=== PATIENT | male | born 1935 | race Caucasian/White ===

== ENCOUNTER 2016-10-01 09:27 | Inpatient (IN) | payer OTHER ==
--- NOTE | 2016-10-01 09:54 | PDOC ---
History of Present Illness <Sonu Saldana - Last Filed: 10/01/16 15:55> - General History Source: Family, Significant Other Exam Limitations: Dementia, Language Barrier - History of Present Illness Initial Comments: 10/01/16 10:34 The patient is an 80 year old male, with significant past medical history of NSTEMI (s/p stents 2013), HTN, HLD,left inguinal hernia, Alzheimer's, who presents today complaining of 1 syncopal episode this morning. The patient speaks Kinyarwanda- history was obtained from his and son. The patient was walking back from the bathroom to his room this morning when he slumped over, lost consciousness, and fell onto the bed. The patients states that it took him 10 minutes to return back to his senses. They deny head trauma or any other injuries. The patient has no complaints at this time. The patient experienced 1 syncopal episode last week, however, he recovered quickly and the family did not bring him to the ER. The patient has been undergoing cardiac issues since a hernia was discovered 3 months ago and the doctor did not clear him for hernia repair. The patient saw Dr. Donahue who sent him to [facility] for a double bypass. He did not pass the stress test and was not cleared for surgery. He is scheduled for a triple bypass on 10/28/16. He also saw Dr. Tucker yesterday complaining of a left sided nose bleed. Denies chest pain, SOB, palpitations. Denies fever, chills, nausea, vomiting, diarrhea, constipation. Allergies: none reported PCP- Dr. Rocky Tucker Front Office Assistant - Dr. Rocky Donahue <Coni Alcaraz - Last Filed: 10/01/16 18:55> - General Chief Complaint: Syncope/Near Syncope Stated Complaint: SYNCOPE/NEAR SYNCOPE Time Seen by Provider: 10/01/16 09:53 Past History - Past Medical History Cardiac Disorders: Yes GI Disorders: Yes (hernia) - Surgical History Cardiac Surgery: Yes (stents) - Immunization History Immunization Up to Date: No - Psycho/Social/Smoking Cessation Hx Anxiety: No Suicidal Ideation: No Smoking History: Never smoked Have you smoked in the past 12 months: No Hx Alcohol Use: No Drug/Substance Use Hx: No Substance Use Type: None <Sonu Saldana - Last Filed: 10/01/16 15:55> <Coni Alcaraz - Last Filed: 10/01/16 18:55> - Past Medical History Allergies/Adverse Reactions: Allergies Allergy/AdvReac Type Severity Reaction Status Date / Time No Known Allergies Allergy Verified 10/01/16 09:46 Home Medications: Ambulatory Orders Aspirin [ASA -] 81 mg PO DAILY 10/01/16 Atorvastatin Ca [Lipitor] 40 mg PO HS 10/01/16 Donepezil HCl 5 mg PO HS 10/01/16 Folic Acid 1 mg PO DAILY 10/01/16 Memantine HCl 10 mg PO BID 10/01/16 Metoprolol Tartrate 12.5 mg PO BID 10/01/16 Ramipril 2.5 mg PO DAILY 10/01/16 Review of Systems - Review of Systems Able to Perform ROS?: Yes Comments:: 10/01/16 10:35 GENERAL/CONSTITUTIONAL: No fever or chills. No weakness. HEAD, EYES, EARS, NOSE AND THROAT: No change in vision. No ear pain or discharge. No sore throat. CARDIOVASCULAR: No chest pain or shortness of breath. RESPIRATORY: No cough, wheezing, or hemoptysis. GASTROINTESTINAL: No nausea, vomiting, diarrhea or constipation. GENITOURINARY: No dysuria, frequency, or change in urination. MUSCULOSKELETAL: No joint or muscle swelling or pain. No neck or back pain. SKIN: No rash NEUROLOGIC: +1 syncopal episode. No headache, vertigo, or change in strength/ sensation. ENDOCRINE: No increased thirst. No abnormal weight change. HEMATOLOGIC/LYMPHATIC: No anemia, easy bleeding, or history of blood clots. ALLERGIC/IMMUNOLOGIC: No hives or skin allergy. <Coni Alcaraz - Last Filed: 10/01/16 18:55> *Physical Exam - Vital Signs Last Vital Signs Temp Pulse Resp BP Pulse Ox 98.1 F 66 18 148/84 97 10/01/16 09:41 10/01/16 09:41 10/01/16 09:41 10/01/16 09:41 10/01/16 09:41 <Sonu Saldana - Last Filed: 10/01/16 15:55> - Vital Signs Last Vital Signs Temp Pulse Resp BP Pulse Ox 98.1 F 66 18 148/84 97 10/01/16 09:41 10/01/16 09:41 10/01/16 09:41 10/01/16 09:41 10/01/16 09:41 - Physical Exam Comments: 10/01/16 10:35 GENERAL: Awake, alert, and fully oriented, in no acute distress HEAD: No signs of trauma EYES: PERRLA, EOMI, sclera anicteric, conjunctiva clear ENT: Auricles normal inspection, hearing grossly normal, nares patent, oropharynx clear without exudates. Moist mucosa NECK: Normal ROM, supple, no lymphadenopathy, JVD, or masses LUNGS: Breath sounds equal, clear to auscultation bilaterally. No wheezes, and no crackles HEART: Regular rate and rhythm, normal S1 and S2, no murmurs, rubs or gallops ABDOMEN: +large left inguinal hernia that is not incarcerated. Soft, nontender, normoactive bowel sounds. No guarding, no rebound. No masses EXTREMITIES: Normal range of motion, no edema. No clubbing or cyanosis. No cords, erythema, or tenderness NEUROLOGICAL: Cranial nerves II through XII grossly intact. Normal speech, normal gait SKIN: Warm, Dry, normal turgor, no rashes or lesions noted. <Coni Alcaraz - Last Filed: 10/01/16 18:55> Heart Score/ECG Review #1 10/01/16 13:00 Normal sinus rhythm Rate at 64bpm abnormal EKG <Coni Alcaraz - Last Filed: 10/01/16 18:55> ED Treatment Course - LABORATORY CBC & Chemistry Diagram: 10/01/16 10:15 10/01/16 11:30 <Sonu Saldana - Last Filed: 10/01/16 15:55> - LABORATORY CBC & Chemistry Diagram: 10/01/16 10:15 10/01/16 11:30 - RADIOLOGY Radiograph Interpretation: 10/01/16 12:[address] without contrast As reported by Dr. Yang Cornejo Impression: Moderate atrophy and chronic microvascular ischemic changes without evidence of intracranial pathology. Chest Xray As reported by Dr. Pantera Purdy Impression: No evidence of active pulmonary disease. 10/01/16 14:[address] without contrast As reported by Dr. Yang Cornejo Impression: Increase in size of a left hepatic lobe 2 adjacent cysts versus a larger lobulated cyst with a thin septation, as described above. 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 Aneurysmal dilation of the distal abdominal aorta measuring 4.3 x 5 cm in AP and transverse dimension as well as aneurysmal dilation of the right and left common iliac artery measuring 2.1 and 1.3cm, respectively. <Coni Alcaraz - Last Filed: 10/01/16 18:55> Medical Decision Making - Medical Decision Making 10/01/16 15:59 Dr. Saldana spoke with Dr. Donahue regarding the patient's care. Dr. Saldana spoke with Dr. Tucker who requested that the patient be placed in ICU. <Coni Alcaraz - Last Filed: 10/01/16 18:55> *DC/Admit/Observation/Transfer - Discharge Dispostion Admit: Yes - Attestations Physician Attestion: 10/01/16 09:53 I, Dr. Sonu Saldana, attest that this document has been prepared under my direction and personally reviewed by me in its entirety. I further attest, that it accurately reflects all work, treatment, procedures and medical decision -making performed by me. <Sonu Saldana - Last Filed: 10/01/16 15:55> - Attestations Scribe Attestion: 10/01/16 10:36 Documentation prepared by ALLAN Panda, acting as front office medical assistant for Sonu Saldana DO. <Coni Alcaraz - Last Filed: 10/01/16 18:55> Diagnosis at time of Disposition: Abdominal aneurysm, Iliac artery aneurysm, bilateral Cardiac arrhythmia Qualifiers: Arrhythmia type: unspecified cardiac arrhythmia Qualified Code(s): I49.9 - Cardiac arrhythmia, unspecified Syncope Qualifiers: Syncope type: unspecified Qualified Code(s): R55 - Syncope and collapse - Discharge Dispostion Condition at time of disposition: Unchanged/Unknown - Referrals
[2016-10-01 10:59] LABS: BASOPHIL 1.1 % (0-2.0); EOSINOPHIL 2.9 % (0-4.5); MCH 32.5 pg (25.7-33.7); MCHC 34.1 g/dl (32.0-35.9); MEAN CELL VOLUME 95.4 fl (80-96); MEAN PLT VOLUME 9.6 fl (7.5-11.1); NEUTROPHILS 70.4 % (42.8-82.8); PLATELET COUNT 119 K/MM3 (134-434); RDW 13.2 % (11.9-15.9); WHITE BLOOD COUNT 5.5 K/mm3 (4.0-10.0)
[2016-10-01 11:17] LABS: INR 1.02 (0.82-1.09); PROTHROMBIN TIME (PATIENT) 11.2 SEC (9.98-11.88)
[2016-10-01 12:56] LABS: ALBUMIN 3.6 g/dl (3.4-5.0); ANION GAP 11 (8-16); CALCIUM 8.8 mg/dL (8.5-10.1); CO2 29 mmol/L (21-32); COCKROFT - GAULT 66.14; GLUCOSE,RANDOM 71 mg/dL (74-106)
[2016-10-01 12:58] LABS: ALK PHOS 73 U/L (45-117); BILIRUBIN,TOTAL 0.6 mg/dL (0.2-1.0); SGPT/ALT 28 U/L (12-78)
[2016-10-01 13:02] LABS: SGOT/AST 29 U/L (15-37)
[2016-10-01 14:26] LABS: TROPONIN I < 0.02 ng/ml (0.00-0.05)
--- NOTE | 2016-10-01 15:50 | EKG ---
Test Reason : Blood Pressure : / mmHG Vent. Rate : 064 BPM Atrial Rate : 064 BPM P-R Int : 164 ms QRS Dur : 136 ms QT Int : 430 ms P-R-T Axes : 024 -47 -77 degrees QTc Int : 443 ms NORMAL SINUS RHYTHM LEFT AXIS DEVIATION LEFT BUNDLE BRANCH BLOCK ABNORMAL ECG WHEN COMPARED WITH ECG OF 03-MAR-2014 05:32, T WAVE INVERSION LESS EVIDENT IN INFERIOR LEADS Confirmed by MARRY VALLE MD ([id number]) on 10/01/2016 3:50:00 PM Referred By: Confirmed By:MARRY VALLE MD
--- NOTE | 2016-10-01 16:41 | CON.CARD ---
Consult Consult Specialty:: cardiology Reason for Consultation:: syncope x 2; hx CAD, AAA - History of Present Illness History of Present Illness: The patient is a 85 year old man (nani Chandler), accompanied by daughter and )r, with a significant past medical history of NSTEMI, triple vessel CAD, s/p DEStent of LAD; 100% RCA occlusion; for staged LCx stent (refused CABG 08/2016) , systolic and diastolic CHF, hypertension, LBBB, and dementia, on a daily baby aspirin and clopidogrel, who presents to the ED s/p witnessed fall earlier today. As per daughter, the patient got up to use the bathroom when she fell onto the right side of her body and on the right side of the back of her head. Patient reports right sided arm pain and right sided leg pain. Pt reportedly did not recover consciousness for several minutes; he reportedly had a similar episode last week. Denies head pain. Denies loss of consciousness. Denies focal numbness, weakness , or tingling. Denies chest pain or shortness of breath. Denies any other symptoms. - History Source History Provided By: Family Member, Medical Record Limitations to Obtaining History: Poor Historian - Past Medical History Cardio/Vascular: Yes: CAD, CHF, HTN Renal/: Yes: Renal Inusuff Psych: Yes: Anxiety - Past Surgical History Past Surgical History: Yes: Stent (coronary stents) - Alcohol/Substance Use Hx Alcohol Use: No Number of Drinks Daily: 1 - Smoking History Smoking history: Never smoked Have you smoked in the past 12 months: No - Social History Usual Living Arrangement: With Spouse Home Medications - Allergies Allergies/Adverse Reactions: Allergies Allergy/AdvReac Type Severity Reaction Status Date / Time No Known Allergies Allergy Verified 10/01/16 09:46 - Home Medications Home Medications: Ambulatory Orders Aspirin [ASA -] 81 mg PO DAILY 10/01/16 Atorvastatin Ca [Lipitor] 40 mg PO HS 10/01/16 Donepezil HCl 5 mg PO HS 10/01/16 Folic Acid 1 mg PO DAILY 10/01/16 Memantine HCl 10 mg PO BID 10/01/16 Metoprolol Tartrate 12.5 mg PO BID 10/01/16 Ramipril 2.5 mg PO DAILY 10/01/16 Family Disease History - Family Disease History Family History: Denies Review of Systems - Review of Systems Constitutional: reports: Weakness Eyes: reports: No Symptoms HENT: reports: No Symptoms Neck: reports: No Symptoms Cardiovascular: reports: No Symptoms Respiratory: reports: No Symptoms Gastrointestinal: reports: No Symptoms Genitourinary: reports: No Symptoms Breasts: reports: No Symptoms Reported Musculoskeletal: reports: Muscle Weakness Integumentary: reports: No Symptoms Neurological: reports: Syncope, Weakness Endocrine: reports: No Symptoms Hematology/Lymphatic: reports: No Symptoms Psychiatric: reports: Anxiety, Other (dementia ("mild-moderate")) - Risk Factors Known Risk Factors: Yes: Age, Gender, Hypercholesterolemia, Hypertension, Prior MO /Emb Stroke, Other (ELISSA stents; triple vessel CAD; CHF) Vital Signs: Vital Signs Temperature 98.1 F 10/01/16 09:41 Pulse Rate 64 10/01/16 10:15 Respiratory Rate 18 10/01/16 09:41 Blood Pressure 148/84 10/01/16 09:41 O2 Sat by Pulse Oximetry (%) 100 10/01/16 10:15 Constitutional: Yes: Anxious Eyes: Yes: WNL HENT: Yes: WNL Neck: Yes: WNL Respiratory: Yes: WNL Gastrointestinal: Yes: Soft Renal/: No: Anuria Cardiovascular: Yes: Regular Rate and Rhythm JVD: No Carotid Bruit: No PMI: Non-Displaced Heart Sounds: Yes: S1, Split S2 Murmur: Yes: Systolic Murmur, Grade 2 Musculoskeletal: Yes: Muscle Weakness Extremities: Yes: WNL Edema: No Peripheral Pulses WNL: Yes Integumentary: Yes: WNL Neurological: Yes: Confusion, Weakness Psychiatric: Yes: Alert, Other (dementia) - Other Data Labs, Other Data: CBC, BMP 10/01/16 10:15 10/01/16 11:30 INR, PTT INR 1.02 (0.82-1.09) 10/01/16 10:15 Troponin, BNP 10/01/16 10/01/16 10/01/16 10:15 11:30 14:06 Troponin I Cancelled < 0.02 D Cancelled B-Natriuretic Peptide Cancelled Cancelled Troponin, BNP 10/01/16 10/01/16 10/01/16 10:15 11:30 14:06 Troponin I Cancelled < 0.02 D Cancelled B-Natriuretic Peptide Cancelled Cancelled Abnormal Lab Results 05/10/01/16 10/01/16 10:15 11:30 14:30 Plt Count 119 L Monocytes % BUN 21 H D Random Glucose 71 L D Total Protein 6.0 L HDL Cholesterol 82 H 10/02/16 10/02/16 05:05 05:05 Plt Count 132 L Monocytes % 11.2 H BUN 19 H Random Glucose Total Protein 5.9 L HDL Cholesterol Imaging - Results EKG: Image Reviewed (NSR; LBBB (chronic)) Problem List - Problems (1) Abdominal aneurysm Code(s): I71.4 - ABDOMINAL AORTIC ANEURYSM, WITHOUT RUPTURE (2) Chest pain Code(s): R07.9 - CHEST PAIN, UNSPECIFIED (3) HTN (hypertension) Code(s): I10 - ESSENTIAL (PRIMARY) HYPERTENSION Qualifiers: Hypertension type: essential hypertension Qualified Code(s): I10 - Essential (primary) hypertension (4) Iliac artery aneurysm, bilateral Code(s): I72.3 - ANEURYSM OF ILIAC ARTERY (5) Syncope Assessment/Plan: TNI < 0.02. EKG: NSR; LBBB; no acute changes. Follow on telemetry monitoring. Orthostatic vital sign checks. TSH WNL. F/u carotid artery US. ECHO for LVEF, wall motion, r/o thrombic focus. Maintain hydration. F/u recent cardiac workup (staged coronary artery stenting; pt refused CABG). Code(s): R55 - SYNCOPE AND COLLAPSE Qualifiers: Syncope type: unspecified Qualified Code(s): R55 - Syncope and collapse (6) Hyperlipidemia Code(s): E78.5 - HYPERLIPIDEMIA, UNSPECIFIED Qualifiers: Hyperlipidemia type: unspecified Qualified Code(s): E78.5 - Hyperlipidemia, unspecified (7) Dementia Assessment/Plan: On Namenda. Code(s): F03.90 - UNSPECIFIED DEMENTIA WITHOUT BEHAVIORAL DISTURBANCE
--- NOTE | 2016-10-01 17:43 | CONSULT ---
Consultation: REQUESTING PROVIDER: Dr. Wong CONSULT REQUEST: We have been asked to medically evaluate this patient for syncope in a patient with aortic dilation. HISTORY OF PRESENT ILLNESS: 80 yr portguese speaking man BIB family for unwitnessed syncope this morning at 4AM. patient woke up to urinate around 4AM, after using the bathroom he remembers walking back to the bed but found himself on the floor. was sleeping when she was awoken by his moaning, thinks he may have been down for 10 minutes, she did not witness him fall/any abnormal movements of his extremities, he was not incontinent while on the floor. denies confusion when he woke up. once awake, he went to the kitchen to make himself coffee. called their children who brought them to the ED. Patient had a previous episode of syncope last week, friday, while the and patient were sitting on the couch. He was telling her a story and become "very exciting and anxious" when he suddenly "slumped" in the couch without any abnormal movements of his extremities, but he woke up quickly <1minute, so did not seek medical attention. Recently seen in dr. wong's office on friday due to epistaxis from left nostril Patient is a poor historian. history aided by and daughter at bedside. he takes a walk every morning without difficulty or any recent decrease in exercise tolerance. denies lightheadness, dizziness, chest pain, palpitations, unsteady gait, exterional dyspnea. 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 Social: never smoker/ETOH/drug use. 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, lives with , independent toilets/eats/bathes/drives car Family hx of breast cancer in father and sister REVIEW OF SYSTEMS: CONSTITUTIONAL: Absent: fever, chills, diaphoresis, generalized weakness, malaise, loss of appetite, weight change HEENT: Absent: rhinorrhea, nasal congestion, throat pain, throat swelling, difficulty swallowing, mouth swelling, CARDIOVASCULAR: Present: syncope, Absent: chest pain, palpitations, irregular heart rate, lightheadedness, peripheral edema RESPIRATORY: Absent: cough, shortness of breath, dyspnea with exertion, orthopnea, GASTROINTESTINAL: Absent: abdominal pain, abdominal distension, nausea, vomiting, diarrhea, constipation, GENITOURINARY: Absent: dysuria, frequency, urgency, hesitancy, hematuria, flank pain, MUSCULOSKELETAL: Absent: myalgia, arthralgia, joint swelling, back pain, neck pain SKIN: Absent: rash, itching, pallor ENDOCRINE: Absent: unexplained weight gain, unexplained weight loss, NEUROLOGIC: Absent: headache, focal weakness or paresthesias, dizziness, unsteady gait, seizure, mental status changes, bladder or bowel incontinence PHYSICAL EXAMINATION GENERAL: Awake, alert, and oriented to person/birthday/month/day/location/state , not to president (thinks it is 1969) in no acute distress. HEAD: Normal with no signs of trauma. EYES: Pupils equal, round and reactive to light, extraocular movements intact, sclera anicteric, conjunctiva clear. No lid lag. EARS, NOSE, THROAT: Ears normal, nares patent with left base of nostril at opening with mild erythema, oropharynx clear without exudates. Moist mucous membranes. NECK: Normal range of motion, supple without lymphadenopathy, JVD, or masses. LUNGS: Breath sounds equal, clear to auscultation bilaterally. No wheezes, and no crackles. No accessory muscle use. HEART: Regular rate and rhythm, normal S1 and S2 without murmur, rub or gallop. ABDOMEN: Soft, nontender, not distended, normoactive bowel sounds, no guarding, no rebound, no masses. MUSCULOSKELETAL: Normal range of motion at all joints. No CVA tenderness. UPPER EXTREMITIES: 2+ radial pulses, warm, well-perfused. No cyanosis. No clubbing. Cap refill <2 seconds. No peripheral edema. distal joint of left index finger amputated. LOWER EXTREMITIES: 2+ pulses, warm, well-perfused. No calf tenderness. No peripheral edema. NEUROLOGICAL: Cranial nerves II-XII intact. Normal speech. 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 SKIN: Warm, dry, normal turgor, no rashes. : scrotal sling in place ASSESSMENT/PLAN: 80 yr old man with HTN, CAD sp stents, hx of NSTEMI, dementia, aortic dilation, hx of recent failed stress test, planning for triple CABG presents with 2 syncopal episodes admitted to ICU for further monitoring. syncope - differential diagnosis includes vasovagal response, ACS and arrhythmia. pt is afebrile, with no leucocytosis with clear xry and no complaints of infectious cause for syncope. Head CT negative for acute hemorrhage/infarct/mass, no focal neurological deficits, low suspicion for CVA. Cardiovascular r/o ACS - trend trop x2 - no acute ischemic changes on EKG, LBBB(known), NSR r/o arrythmia - continuous cardiac monitoring orthostatic BP's discussed with dr. Donahue, he will check his records, if pt has had a recent echo, no need to repeat. carotid doppler to r/o stenosis HTN - ramipril 2.5 po daily, lopressor 12.5mg po bid Abdominal Aortic aneurysmal dilation(4.3x5cm in AP and transverse, right and left comman iliac artery dilatation 2.1 and 1.3cm - f/u at outpatient- known to family and PCP HLD - lipitor 40mg po hs, ASA 81mg po daily Pulmonary hx of 4mm R upper lobe nodule noted in 03/03/2014, pt has no smoking hx. 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 Thank you for this consultative opportunity. Visit type - Emergency Visit Emergency Visit: No - New Patient This patient is new to me today: Yes Date on this admission: 10/01/16 - Critical Care Critical Care patient: Yes Total Critical Care Time (in minutes): 45 Critical Care Statement: The care of this patient involved high complexity decision making to prevent further life threatening deterioration of the patient 's condition and/or to evalute & treat vital organ system(s) failure or risk of failure.
[2016-10-01 20:31] VITALS: BMI 24.7
--- NOTE | 2016-10-01 20:34 | CONSULT ---
Consult Consult Specialty:: Pulmonary Critical Care Medicine Referred by:: Kwesi Reason for Consultation:: Syncope - History of Present Illness Chief Complaint: Syncope History of Present Illness: 80 y.o man with hx: inguinal hernia awaiting repair, extensive CAD with previous stents on ASA; now due for likely 3-vessel CABG @ [facility], HTN, dementia who presents after episode of syncope at home. Pt. found on floor by at 4am , pt. awake and confused; took several minutes to return to baseline mental status. Varying reports as to how long pt. was on floor and unconscious; EMS was not called. Family brought pt. to ED later in the AM. Pt. had previous syncopal episode 1 week ago however did not seek treatment. In ED, pt. afebrile, stable vital signs. Head CT negative for acute bleed/ infarct. EKG revealed NSR with left BBB (pre-existing per cards) normal QTc, no ischemic changes. He had non-contrast abdominal CT which revealed "aneurysmal dilation of the distal abdominal aorta measuring 4.3 x 5 cm in AP and transverse dimension as well as aneurysmal dilation of the right and left common iliac artery measuring 2.1 and 1.3cm, respectively"; there was no clinical evidence of dissection. Bilaterally equal distal pulses, he is hemodynamically stable, no back or flank pain. Lab values were unremarkable; troponin negative. 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 Cardio/Vascular: Yes: Aneurysm, CAD Gastrointestinal: Yes: Diverticulosis - Past Surgical History Past Surgical History: Yes: None Additional Surgical History: cardiac stents x2 several years ago - Alcohol/Substance Use Hx Alcohol Use: No Number of Drinks Daily: 1 History of Substance Use: reports: None - Smoking History Smoking history: Never smoked Have you smoked in the past 12 months: No - Social History Usual Living Arrangement: With Spouse ADL: Independent History of Recent Travel: No Home Medications - Allergies Allergies/Adverse Reactions: Allergies Allergy/AdvReac Type Severity Reaction Status Date / Time No Known Allergies Allergy Verified 10/01/16 09:46 - Home Medications Home Medications: Ambulatory Orders Aspirin [ASA -] 81 mg PO DAILY 10/01/16 Atorvastatin Ca [Lipitor] 40 mg PO HS 10/01/16 Donepezil HCl 5 mg PO HS 10/01/16 Folic Acid 1 mg PO DAILY 10/01/16 Memantine HCl 10 mg PO BID 10/01/16 Metoprolol Tartrate 12.5 mg PO BID 10/01/16 Ramipril 2.5 mg PO DAILY 10/01/16 Family Disease History - Family Disease History Family History: Unable to Obtain (language barrier) Review of Systems Unable to obtain ROS, reason: language barrier Findings/Remarks: Per Resident who spoke via ball sorter, no other symptoms as per HPI - Review of Systems Breasts: reports: No Symptoms Reported Musculoskeletal: reports: No Symptoms Integumentary: reports: No Symptoms Neurological: reports: Change in LOC, Dizziness, Syncope Endocrine: reports: No Symptoms Hematology/Lymphatic: reports: No Symptoms Psychiatric: reports: No Symptoms Physical Exam Vital Signs: Vital Signs Temperature 98.6 F 10/01/16 19:30 Pulse Rate 63 10/01/16 19:30 Respiratory Rate 17 10/01/16 19:30 Blood Pressure 133/86 10/01/16 19:30 O2 Sat by Pulse Oximetry (%) 95 10/01/16 19:30 Constitutional: Yes: Well Nourished, No Distress, Calm Eyes: Yes: WNL, Conjunctiva Clear HENT: Yes: Atraumatic, Normocephalic Neck: Yes: WNL, Trachea Midline Cardiovascular: Yes: WNL, Regular Rate and Rhythm Respiratory: Yes: WNL Gastrointestinal: Yes: WNL ...Rectal Exam: Yes: Deferred Renal/: Yes: WNL Musculoskeletal: Yes: WNL Extremities: Yes: WNL Edema: No Integumentary: Yes: WNL Neurological: Yes: Alert ...Motor Strength: WNL Psychiatric: Yes: WNL Imaging - Results Chest X-ray: Report Reviewed Cat Scan: Report Reviewed EKG: Report Reviewed, Image Reviewed (NSR with left BBB, QTc 443) Problem List - Problems (1) Abdominal aneurysm Code(s): I71.4 - ABDOMINAL AORTIC ANEURYSM, WITHOUT RUPTURE (2) Syncope Code(s): R55 - SYNCOPE AND COLLAPSE Qualifiers: Syncope type: unspecified Qualified Code(s): R55 - Syncope and collapse (3) HTN (hypertension) Code(s): I10 - ESSENTIAL (PRIMARY) HYPERTENSION Qualifiers: Hypertension type: essential hypertension Qualified Code(s): I10 - Essential (primary) hypertension (4) Hyperlipidemia Code(s): E78.5 - HYPERLIPIDEMIA, UNSPECIFIED Qualifiers: Hyperlipidemia type: unspecified Qualified Code(s): E78.5 - Hyperlipidemia, unspecified (5) NSTEMI (non-ST elevated myocardial infarction) Code(s): I21.4 - NON-ST ELEVATION (NSTEMI) MYOCARDIAL INFARCTION Assessment/Plan Pulm/CCM: Pt. seen and examined in ICU. Assessment: 80 y.o Portugese speaking man with signicant CAD, s/p stent, on ASA ; varied history suggests pt. experienced syncopal episode likely 2/2 arrhythmia vs. AA rupture vs. CVA (however CT head negative for acute bleed); admitted to ICU for observation. Plan: C/V: extensive CAD -tele observation -echo -repeat EKG in AM -serial trops -continue ASA -continue HTN meds -vascular surgery (Dr. Bill) to see in AM : inguinal hernia -continue scrotal sling Neuro: hx dementia -frequent neuro checks -continue Donepezil Prophy SQ heparin no GI prophylaxis indicated Charisse Salgado, [facility] [id number] Critical Care Time/MDM Note Total Critical Care Time: 35 Critical Care Statement: The care of this patient involved high complexity decision making to prevent further life threatening deterioration of the patient 's condition and/or to evalute & treat vital organ system(s) failure or risk of failure.
[2016-10-01 20:56] LABS: CHOLESTEROL 119 mg/dL (50-200); LDL CHOLESTEROL (ONLY SJRH) 40 mg/dL (5-100)
[2016-10-01] MEDS: MEMANTINE HCL 10 MG TABLET (FP) PO SCH (21:20)
[2016-10-01] MEDS: MUPIROCIN 2% TOPICAL OINTMENT FOR DECOLONIZATION NS SCH (21:20)
[2016-10-01] MEDS: METOPROLOL TARTRATE 25 MG TABLET (FP) PO SCH (21:20)
[2016-10-01] MEDS ORDERED: DONEPEZIL HCL 5 MG TABLET (FP) PO SCH (22:00)
[2016-10-01] MEDS ORDERED: ATORVASTATIN CA 40 MG TABLET (FP) PO SCH (22:00)
[2016-10-01] MEDS ORDERED: CHLORHEXIDINE GLUCONATE 4% CLEANSER FOR DECOLONIZATION TP SCH (22:00)
--- NOTE | 2016-10-01 22:17 | HP ---
Admitting History and Physical - Primary Care Physician PCP: Rocky Tucker - Admission Chief Complaint: Syncope History of Present Illness: 80 y/o male with severe CAD who had a WV 2 yrs ago and underwent angioplasty and placement of two stents and has been without any chest pain or CUETO. A week ago while sitting at a couch with his had a syncopal episode which lasted for about 10 minutes and recovered and did not come to ED. Today around 4AM woke up to pass urine and on his way back to bed he passed out and fell to the floor by the side of his bed and does not know for how long.He regained consciousness and went to the kitche made some coffee and then woke up his who then called her children and was brought to ED around 9AM. His exam was essentially normal except for inguinal hernia. CT of Head was negative, CT of abdomen showed a 5x4 cm AAA and also of both iliac arteries. He had cath in August as his stress sestamibi was ischemic changes and the cath showed extensive CAD and was advised CABG. 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 Cardiovascular: Yes: Aneurysm, CAD Gastrointestinal: Yes: Diverticulosis ENT: Yes: Allergic Rhinitis - Past Surgical History Past Surgical History: Yes: Amputation, Hernia Repair, Stent - Smoking History Smoking history: Never smoked Have you smoked in the past 12 months: No - Alcohol/Substance Use Hx Alcohol Use: Yes Number of Drinks Daily: 1 History of Substance Use: reports: None - Social History Usual Living Arrangement: Yes: With Spouse ADL: Independent History of Recent Travel: No Home Medications - Allergies Allergies/Adverse Reactions: Allergies Allergy/AdvReac Type Severity Reaction Status Date / Time No Known Allergies Allergy Verified 10/01/16 09:46 - Home Medications Home Medications: Ambulatory Orders Aspirin [ASA -] 81 mg PO DAILY 10/01/16 Atorvastatin Ca [Lipitor] 40 mg PO HS 10/01/16 Donepezil HCl 5 mg PO HS 10/01/16 Folic Acid 1 mg PO DAILY 10/01/16 Memantine HCl 10 mg PO BID 10/01/16 Metoprolol Tartrate 12.5 mg PO BID 10/01/16 Ramipril 2.5 mg PO DAILY 10/01/16 Review of Systems - Review of Systems Constitutional: reports: No Symptoms Eyes: reports: No Symptoms HENT: reports: No Symptoms Neck: reports: No Symptoms Cardiovascular: reports: No Symptoms Respiratory: reports: No Symptoms Gastrointestinal: reports: No Symptoms Genitourinary: reports: No Symptoms Musculoskeletal: reports: No Symptoms Integumentary: reports: No Symptoms Neurological: reports: Confusion Endocrine: reports: No Symptoms Hematology/Lymphatic: reports: No Symptoms Psychiatric: reports: No Symptoms Physical Examination Vital Signs: Vital Signs Temperature 98.6 F 10/01/16 19:30 Pulse Rate 63 10/01/16 19:30 Respiratory Rate 17 10/01/16 19:30 Blood Pressure 133/86 10/01/16 19:30 O2 Sat by Pulse Oximetry (%) 95 10/01/16 19:30 Constitutional: Yes: Well Nourished, No Distress, Calm Eyes: Yes: Conjunctiva Clear, EOM Intact HENT: Yes: WNL Neck: Yes: Supple Cardiovascular: Yes: Regular Rate and Rhythm, S1, S2 Respiratory: Yes: Regular, CTA Bilaterally Gastrointestinal: Yes: Normal Bowel Sounds, Soft Renal/: Yes: WNL Breast(s): Yes: WNL Musculoskeletal: Yes: WNL Extremities: Yes: WNL Edema: No Peripheral Pulses WNL: Yes Integumentary: Yes: WNL Neurological: Yes: Alert, Oriented, Cran Nerves II-XII Intact ...Motor Strength: WNL Psychiatric: Yes: Alert, Oriented Imaging - Results Chest X-ray: Report Reviewed, Image Reviewed EKG: Report Reviewed, Image Reviewed Problem List - Problems (1) Abdominal aortic aneurysm (AAA) 3.0 cm to 5.5 cm in diameter in male Assessment/Plan: Incidental finding of aneurysm of abdominal aorta which on US shows to of 3.8 cm and will have to observed Code(s): I71.4 - ABDOMINAL AORTIC ANEURYSM, WITHOUT RUPTURE (2) Coronary artery disease Assessment/Plan: Extensive CAD by cardiac cath performed in August and was advised to have CABG Code(s): I25.10 - ATHSCL HEART DISEASE OF [place] CORONARY ARTERY W/O ANG PCTRS (3) Dementia Code(s): F03.90 - UNSPECIFIED DEMENTIA WITHOUT BEHAVIORAL DISTURBANCE (4) HTN (hypertension) Code(s): I10 - ESSENTIAL (PRIMARY) HYPERTENSION Qualifiers: Hypertension type: essential hypertension Qualified Code(s): I10 - Essential (primary) hypertension (5) Hyperlipidemia Code(s): E78.5 - HYPERLIPIDEMIA, UNSPECIFIED Qualifiers: Hyperlipidemia type: unspecified Qualified Code(s): E78.5 - Hyperlipidemia, unspecified (6) Syncope and collapse Assessment/Plan: The reason for admission was two episodes of syncope , first occurred a week ago witnessed by and the second on the day of admission Code(s): R55 - SYNCOPE AND COLLAPSE Assessment/Plan Will be monitored closely to see the reason for repeated episodes of syncope. He now agrees to undergo CABG and family also agrees to proceed with the same.Case discussed with
[2016-10-01 22:31] LABS: TROPONIN I 0.02 ng/ml (0.00-0.05)
[2016-10-02 05:50] LABS: BASOPHIL 0.7 % (0-2.0); EOSINOPHIL 3.2 % (0-4.5); MCH 32.6 pg (25.7-33.7); MCHC 34.3 g/dl (32.0-35.9); MEAN CELL VOLUME 95.1 fl (80-96); MEAN PLT VOLUME 9.8 fl (7.5-11.1); NEUTROPHILS 62.5 % (42.8-82.8); PLATELET COUNT 132 K/MM3 (134-434); RDW 13.1 % (11.9-15.9); WHITE BLOOD COUNT 6.4 K/mm3 (4.0-10.0)
[2016-10-02 06:13] LABS: ALBUMIN 3.6 g/dl (3.4-5.0); CALCIUM 8.8 mg/dL (8.5-10.1); CREATININE 1.3 mg/dL (0.7-1.3); MAGNESIUM 2.3 mg/dL (1.8-2.4)
[2016-10-02 06:15] LABS: BILIRUBIN,TOTAL 0.9 mg/dL (0.2-1.0); TOT PROT 5.9 g/dl (6.4-8.2)
[2016-10-02] MEDS ORDERED: PT OWN MED DRAWER 7, Y5N ONE ×2 (08:54→09:17)
[2016-10-02] MEDS: MUPIROCIN 2% TOPICAL OINTMENT FOR DECOLONIZATION NS SCH (09:04)
[2016-10-02] MEDS: MEMANTINE HCL 10 MG TABLET (FP) PO SCH ×2 (09:05→22:15)
[2016-10-02] MEDS: METOPROLOL TARTRATE 25 MG TABLET (FP) PO SCH ×2 (09:05→22:15)
--- NOTE | 2016-10-02 09:56 | PN ---
Progress Note, Physician History of Present Illness: The patient is a 85 year old man (nani Chandler), accompanied by )tariq, with a significant past medical history of triple vessel CAD (refused CABG 08/2016), diastolic CHF, hypertension and dementia, on a daily baby aspirin, who presents to the ED s/p witnessed fall earlier today. As per daughter, the patient got up to use the bathroom when she fell onto the right side of her body and on the right side of the back of her head. Patient reports right sided arm pain and right sided leg pain. Pt reportedly did not recover consciousness for several minutes; he reportedly had a similar episode last week. Denies head pain. Denies loss of consciousness. Denies focal numbness, weakness , or tingling. Denies chest pain or shortness of breath. Denies any other symptoms. - Current Medication List Current Medications: Active Medications Aspirin (Asa -) 81 mg PO DAILY [facility] Last Admin: 10/02/16 09:04 Dose: 81 mg Atorvastatin Calcium (Lipitor -) 40 mg PO [facility] Last Admin: 10/01/16 21:20 Dose: 40 mg Chlorhexidine Gluconate (Hibiclens For Decolonization -) 1 applic TP [facility] Last Admin: 10/01/16 21:20 Dose: 1 applic Donepezil HCl (Aricept -) 5 mg PO [facility] Last Admin: 10/01/16 22:06 Dose: 5 mg Enoxaparin Sodium (Lovenox -) 40 mg SQ DAILY [facility] Last Admin: 10/02/16 09:05 Dose: 40 mg Folic Acid (Folic Acid -) 1 mg PO DAILY [facility] Last Admin: 10/02/16 09:05 Dose: 1 mg Memantine (Namenda -) 10 mg PO BID [facility] Last Admin: 10/02/16 09:05 Dose: 10 mg Metoprolol Tartrate (Lopressor -) 12.5 mg PO BID [facility] Last Admin: 10/02/16 09:05 Dose: 12.5 mg Mupirocin (Bactroban Ointment (For Decolonization) -) 1 applic NS BID [facility] Stop: 10/06/16 21:59 Last Admin: 10/02/16 09:04 Dose: 1 applic Ramipril (Altace -) 2.5 mg PO DAILY [facility] Last Admin: 10/02/16 09:04 Dose: 2.5 mg - Objective Vital Signs: Vital Signs Temperature 97.8 F 10/02/16 08:00 Pulse Rate 58 L 10/02/16 08:00 Respiratory Rate 18 10/02/16 08:00 Blood Pressure 123/70 10/02/16 08:00 O2 Sat by Pulse Oximetry (%) 95 10/02/16 08:00 Eyes: Yes: WNL, Conjunctiva Clear, EOM Intact HENT: Yes: WNL, Atraumatic, Normocephalic Neck: Yes: WNL, Supple, Trachea Midline Cardiovascular: Yes: WNL, Regular Rate and Rhythm Respiratory: Yes: WNL, Regular, CTA Bilaterally Gastrointestinal: Yes: WNL, Normal Bowel Sounds Genitourinary: Yes: WNL Musculoskeletal: Yes: WNL Extremities: Yes: WNL Edema: No Integumentary: Yes: WNL Neurological: Yes: WNL, Alert, Oriented ...Motor Strength: WNL Psychiatric: Yes: WNL Labs: CBC, BMP 10/02/16 05:05 10/02/16 05:05 INR, PTT INR 1.02 (0.82-1.09) 10/01/16 10:15
[2016-10-02] MEDS ORDERED: ENOXAPARIN NA (PORCINE) 40 MG/0.4 ML DISP.SYRIN SQ SCH (10:00)
[2016-10-02] MEDS ORDERED: ASPIRIN 81 MG CHEWABLE TABLETS PO SCH (10:00)
[2016-10-02] MEDS ORDERED: RAMIPRIL 2.5 MG CAPSULE (FP) PO SCH (10:00)
[2016-10-02] MEDS ORDERED: FOLIC ACID 1 MG TABLET (FP) PO SCH (10:00)
--- NOTE | 2016-10-02 10:08 | CONSULT ---
Consult Consult Specialty:: Vascular Surgery - History of Present Illness History of Present Illness: 80 year old male admitted after several syncopal events over the past few days. He has a history of coronary disease with prior stenting. He was found to have an abdominal aortic aneurysm on CT scan. There is no prior history of AAA and CT from 2007 did not show any aortic enlargement. 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 Cardio/Vascular: Yes: CAD, CHF, HTN Gastrointestinal: Yes: Diverticulosis Renal/: Yes: Renal Inusuff Psych: Yes: Anxiety ENT: Yes: Allergic Rhinitis - Past Surgical History Past Surgical History: Yes: Stent (coronary stents) Additional Surgical History: cardiac stents x2 several years ago - Alcohol/Substance Use Hx Alcohol Use: No Number of Drinks Daily: 1 History of Substance Use: reports: None - Smoking History Smoking history: Never smoked Have you smoked in the past 12 months: No - Social History Usual Living Arrangement: With Spouse ADL: Independent History of Recent Travel: No Home Medications - Allergies Allergies/Adverse Reactions: Allergies Allergy/AdvReac Type Severity Reaction Status Date / Time No Known Allergies Allergy Verified 10/01/16 09:46 - Home Medications Home Medications: Ambulatory Orders Aspirin [ASA -] 81 mg PO DAILY 10/01/16 Atorvastatin Ca [Lipitor] 40 mg PO HS 10/01/16 Donepezil HCl 5 mg PO HS 10/01/16 Folic Acid 1 mg PO DAILY 10/01/16 Memantine HCl 10 mg PO BID 10/01/16 Metoprolol Tartrate 12.5 mg PO BID 10/01/16 Ramipril 2.5 mg PO DAILY 10/01/16 Physical Exam Vital Signs: Vital Signs Temperature 97.8 F 10/02/16 08:00 Pulse Rate 58 L 10/02/16 08:00 Respiratory Rate 18 10/02/16 08:00 Blood Pressure 123/70 10/02/16 08:00 O2 Sat by Pulse Oximetry (%) 95 10/02/16 08:00 Constitutional: Yes: No Distress Eyes: Yes: EOM Intact Neck: Yes: Supple Cardiovascular: Yes: Regular Rate and Rhythm Respiratory: Yes: Regular Gastrointestinal: Yes: Soft Labs: CBC, BMP 10/02/16 05:05 10/02/16 05:05 Imaging - Results Cat Scan: Image Reviewed (Infrarenal AAA maximum diameter 54 mm with bilateral iliac ectasia.) Problem List - Problems (1) Abdominal aortic aneurysm (AAA) 3.0 cm to 5.5 cm in diameter in male Assessment/Plan: Asymptomatic AAA 5.4 cm maximum diameter. At this time there is no urgent need for repair. Any cardiac intervention should take precedence. When stable he can be evaluated for an endovascular stent graft repair. Code(s): I71.4 - ABDOMINAL AORTIC ANEURYSM, WITHOUT RUPTURE
--- NOTE | 2016-10-02 11:01 | PN ---
Physical Exam: SUBJECTIVE: Patient seen and examined in ICU. He doesn't have any complaints. Denies chest pain, palpitations, dizziness, LOC. no overnight events. OBJECTIVE: Vital Signs Period Temp Pulse Resp BP Sys/Casey Pulse Ox Last 24 Hr 97.7 F-98.6 F 52-64 15-20 107-148/60-89 95-97 GENERAL: The patient is awake, alert, and fully oriented, in no acute distress. HEAD: Normal with no signs of trauma. EYES: PERRL, extraocular movements intact, sclera anicteric, conjunctiva clear. No ptosis. ENT: Ears normal, nares patent, oropharynx clear without exudates, moist mucous membranes. NECK: Trachea midline, full range of motion, supple. LUNGS: Breath sounds equal, clear to auscultation bilaterally, no wheezes, no crackles, no accessory muscle use. HEART: Regular rate and rhythm, S1, S2 without murmur, rub or gallop. ABDOMEN: Soft, nontender, nondistended, normoactive bowel sounds, no guarding, no rebound, no hepatosplenomegaly, no masses. EXTREMITIES: 2+ pulses, warm, well-perfused, no edema, no distal index finger. NEUROLOGICAL: Cranial nerves II through XII grossly intact, no facial asymmetry. Normal speech, gait not observed. PSYCH: Normal mood, normal affect. SKIN: Warm, dry, normal turgor, no rashes or lesions noted Laboratory Results - last 24 hr 10/01/16 10/02/16 10/02/16 21:30 05:05 05:05 WBC 6.4 RBC 4.35 Hgb 14.2 Hct 41.4 MCV 95.1 MCHC 34.3 RDW 13.1 Plt Count 132 L MPV 9.8 Neutrophils % 62.5 Lymphocytes % 22.4 D Monocytes % 11.2 H Eosinophils % 3.2 Basophils % 0.7 Sodium 143 Potassium 4.3 Chloride 103 Carbon Dioxide 32 Anion Gap 8 BUN 19 H Creatinine 1.3 D Creat Clearance w eGFR 53.12 Random Glucose 83 Hemoglobin A1c % Calcium 8.8 Phosphorus 4.0 D Magnesium 2.3 D Total Bilirubin 0.9 D AST 24 ALT 28 Alkaline Phosphatase 77 Creatine Kinase 116 Troponin I 0.02 Total Protein 5.9 L Albumin 3.6 10/02/16 05:05 WBC RBC Hgb Hct MCV MCHC RDW Plt Count MPV Neutrophils % Lymphocytes % Monocytes % Eosinophils % Basophils % Sodium Potassium Chloride Carbon Dioxide Anion Gap BUN Creatinine Creat Clearance w eGFR Random Glucose Hemoglobin A1c % 5.1 Calcium Phosphorus Magnesium Total Bilirubin AST ALT Alkaline Phosphatase Creatine Kinase Troponin I Total Protein Albumin Active Medications Generic Name Dose Route Start Last Admin Trade Name Freq PRN Reason Stop Dose Admin Aspirin 81 mg 10/02/16 10:00 10/02/16 09:04 Asa - PO 81 mg DAILY JIL Administration Atorvastatin Calcium 40 mg 10/01/16 22:00 10/01/16 21:20 Lipitor - PO 40 mg HS JIL Administration Chlorhexidine Gluconate 1 applic 10/01/16 22:00 10/01/16 21:20 Hibiclens For Decolonization - TP 1 applic HS JIL Administration Donepezil HCl 5 mg 10/01/16 22:00 10/01/16 22:06 Aricept - PO 5 mg HS JIL Administration Enoxaparin Sodium 40 mg 10/02/16 10:00 10/02/16 09:05 Lovenox - SQ 40 mg DAILY JIL Administration Folic Acid 1 mg 10/02/16 10:00 10/02/16 09:05 Folic Acid - PO 1 mg DAILY JIL Administration Memantine 10 mg 10/01/16 22:00 10/02/16 09:05 Namenda - PO 10 mg BID JIL Administration Metoprolol Tartrate 12.5 mg 10/01/16 22:00 10/02/16 09:05 Lopressor - PO 12.5 mg BID JIL Administration Mupirocin 1 applic 10/01/16 22:00 10/02/16 09:04 Bactroban Ointment (For Decolonization) - NS 10/06/16 21:59 1 applic BID JIL Administration Ramipril 2.5 mg 10/02/16 10:00 10/02/16 09:04 Altace - PO 2.5 mg DAILY JIL Administration Head CT negative for acute hemorrhage/infarct/mass, no focal neurological deficits, low suspicion for CVA. ASSESSMENT/PLAN: 80 yr old man with HTN, CAD sp stents, hx of NSTEMI, 2 stents in 2013, dementia , aortic dilation, hx of recent failed stress test, planning for triple CABG in a month presents with 2 syncopal episodes admitted to ICU for further monitoring. Cardiovascular s/p syncope -possible due to vasovagal response, ACS and arrhythmia -troponins negative, -no acute ischemic changes on EKG, LBBB(known), NSR - continuous cardiac monitoring -carotid doppler to r/o stenosis done HTN - ramipril 2.5 po daily, lopressor 12.5mg po bid Abdominal Aortic aneurysmal dilation(4.3x5cm in AP and transverse, right and left comman iliac artery dilatation 2.1 and 1.3cm -f/u Surgery recommendation HLD - lipitor 40mg po hs, ASA 81mg po daily Pulmonary hx of 4mm R upper lobe nodule noted in 03/03/2014, pt has no smoking hx. 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 Thank you for this consultative opportunity. Visit type - Emergency Visit Emergency Visit: Yes ED Registration Date: 10/01/16 Care time: The patient presented to the Emergency Department on the above date and was hospitalized for further evaluation of their emergent condition. - New Patient This patient is new to me today: Yes Date on this admission: 10/02/16 - Critical Care Critical Care patient: Yes Total Critical Care Time (in minutes): 35 Critical Care Statement: The care of this patient involved high complexity decision making to prevent further life threatening deterioration of the patient 's condition and/or to evalute & treat vital organ system(s) failure or risk of failure.
--- NOTE | 2016-10-02 11:51 | PN ---
Teaching Attending Note Name of Resident: Erika Nelson ATTENDING PHYSICIAN STATEMENT I saw and evaluated the patient. I reviewed the resident's note and discussed the case with the resident. I agree with the resident's findings and plan as documented. SUBJECTIVE: Pt seen and examined in the ICU. No events overnight. No telemetry events. OBJECTIVE: Last Vital Signs Temp Pulse Resp BP Pulse Ox 97.7 F 64 20 126/89 95 10/02/16 10:00 10/02/16 10:00 10/02/16 10:00 10/02/16 10:00 10/02/16 08:00 Intake & Output 09/29/16 09/30/16 10/01/16 10/02/16 23:59 23:59 23:59 23:59 Intake Total 300 Output Total 300 300 Balance 0 -300 Weight 153 lb 153 lb Gen: NAD at rest Heart: RRR Lung: decreased breath sounds at the bases Abd: soft, nontender Ext: no edema CBC, BMP 10/02/16 05:05 10/02/16 05:05 Active Medications Aspirin (Asa -) 81 mg PO DAILY [facility] Last Admin: 10/02/16 09:04 Dose: 81 mg Atorvastatin Calcium (Lipitor -) 40 mg PO HS [facility] Last Admin: 10/01/16 21:20 Dose: 40 mg Chlorhexidine Gluconate (Hibiclens For Decolonization -) 1 applic TP HS [facility] Last Admin: 10/01/16 21:20 Dose: 1 applic Donepezil HCl (Aricept -) 5 mg PO HS [facility] Last Admin: 10/01/16 22:06 Dose: 5 mg Enoxaparin Sodium (Lovenox -) 40 mg SQ DAILY [facility] Last Admin: 10/02/16 09:05 Dose: 40 mg Folic Acid (Folic Acid -) 1 mg PO DAILY [facility] Last Admin: 10/02/16 09:05 Dose: 1 mg Memantine (Namenda -) 10 mg PO BID [facility] Last Admin: 10/02/16 09:05 Dose: 10 mg Metoprolol Tartrate (Lopressor -) 12.5 mg PO BID [facility] Last Admin: 10/02/16 09:05 Dose: 12.5 mg Mupirocin (Bactroban Ointment (For Decolonization) -) 1 applic NS BID [facility] Stop: 10/06/16 21:59 Last Admin: 10/02/16 09:04 Dose: 1 applic Ramipril (Altace -) 2.5 mg PO DAILY [facility] Last Admin: 10/02/16 09:04 Dose: 2.5 mg ASSESSMENT AND PLAN: Syncope CAD LV Diastolic Dysfunction HTN AAA - echocardiogram - trend cardiac enzymes, EKGs - monitor on telelmetry - DVT prophylaxis
--- NOTE | 2016-10-02 12:56 | PN ---
Progress Note, Physician History of Present Illness: The patient is a 85 year old man (nani Chandler), accompanied by )tariq, with a significant past medical history of triple vessel CAD (refused CABG 08/2016), diastolic CHF, hypertension and dementia, on a daily baby aspirin, who presents to the ED s/p witnessed fall earlier today. As per daughter, the patient got up to use the bathroom when she fell onto the right side of her body and on the right side of the back of her head. Patient reports right sided arm pain and right sided leg pain. Pt reportedly did not recover consciousness for several minutes; he reportedly had a similar episode last week. Denies head pain. Denies loss of consciousness. Denies focal numbness, weakness , or tingling. Denies chest pain or shortness of breath. Denies any other symptoms. - Current Medication List Current Medications: Active Medications Aspirin (Asa -) 81 mg PO DAILY [facility] Atorvastatin Calcium (Lipitor -) 40 mg PO HS [facility] Chlorhexidine Gluconate (Hibiclens For Decolonization -) 1 applic TP HS [facility] Donepezil HCl (Aricept -) 5 mg PO HS [facility] Enoxaparin Sodium (Lovenox -) 40 mg SQ DAILY [facility] Folic Acid (Folic Acid -) 1 mg PO DAILY [facility] Memantine (Namenda -) 10 mg PO BID [facility] Metoprolol Tartrate (Lopressor -) 12.5 mg PO BID [facility] Mupirocin (Bactroban Ointment (For Decolonization) -) 1 applic NS BID [facility] Stop: 10/06/16 21:59 Ramipril (Altace -) 2.5 mg PO DAILY [facility] - Objective Vital Signs: Vital Signs Temperature 98.1 F 10/02/16 12:40 Pulse Rate 60 10/02/16 12:40 Respiratory Rate 20 10/02/16 12:40 Blood Pressure 119/79 10/02/16 12:40 O2 Sat by Pulse Oximetry (%) 95 10/02/16 08:00 Eyes: Yes: WNL, Conjunctiva Clear, EOM Intact HENT: Yes: WNL, Atraumatic, Normocephalic Neck: Yes: WNL, Supple, Trachea Midline Cardiovascular: Yes: WNL, Regular Rate and Rhythm Respiratory: Yes: WNL, Regular, CTA Bilaterally Gastrointestinal: Yes: WNL, Normal Bowel Sounds Genitourinary: Yes: WNL Musculoskeletal: Yes: WNL Extremities: Yes: WNL Edema: No Integumentary: Yes: WNL Neurological: Yes: WNL, Alert, Oriented ...Motor Strength: WNL Psychiatric: Yes: WNL Labs: CBC, BMP 10/02/16 05:05 10/02/16 05:05 INR, PTT INR 1.02 (0.82-1.09) 10/01/16 10:15 Assessment/Plan Problems (1) Abdominal aneurysm Code(s): I71.4 - ABDOMINAL AORTIC ANEURYSM, WITHOUT RUPTURE (2) Chest pain Code(s): R07.9 - CHEST PAIN, UNSPECIFIED (3) HTN (hypertension) Code(s): I10 - ESSENTIAL (PRIMARY) HYPERTENSION Qualifiers: Hypertension type: essential hypertension Qualified Code(s): I10 - Essential (primary) hypertension (4) Iliac artery aneurysm, bilateral Code(s): I72.3 - ANEURYSM OF ILIAC ARTERY (5) Syncope Assessment/Plan: TNI < 0.02. EKG: NSR; LBBB; no acute changes. Follow on telemetry monitoring. Orthostatic vital sign checks. TSH WNL. F/u carotid artery US. ECHO for LVEF, wall motion, r/o thrombic focus. Maintain hydration. F/u recent cardiac workup (staged coronary artery stenting; pt refused CABG in the past now agreeing to it). Will evaluate /transfer the patient for CABG after vascular evaluation with dr. Bill. Code(s): R55 - SYNCOPE AND COLLAPSE Qualifiers: Syncope type: unspecified Qualified Code(s): R55 - Syncope and collapse (6) Hyperlipidemia Code(s): E78.5 - HYPERLIPIDEMIA, UNSPECIFIED Qualifiers: Hyperlipidemia type: unspecified Qualified Code(s): E78.5 - Hyperlipidemia, unspecified (7) Dementia Assessment/Plan: On Namenda. Code(s): F03.90 - UNSPECIFIED DEMENTIA WITHOUT BEHAVIORAL DISTURBANCE d/w dr. Tucker CC time spend 38 min.
[2016-10-02] MEDS ORDERED: CHLORHEXIDINE GLUCONATE 4% CLEANSER FOR DECOLONIZATION TP SCH (22:00)
[2016-10-02] MEDS ORDERED: MUPIROCIN 2% TOPICAL OINTMENT FOR DECOLONIZATION NS SCH (22:00)
[2016-10-02] MEDS: DONEPEZIL HCL 5 MG TABLET (FP) PO SCH (22:15)
[2016-10-02] MEDS: ATORVASTATIN CA 40 MG TABLET (FP) PO SCH (22:15)
--- NOTE | 2016-10-02 23:32 | PN ---
Progress Note, Physician History of Present Illness: Denies any chest pain, SOB, palpitations, dizziness - Current Medication List Current Medications: Active Medications Aspirin (Asa -) 81 mg PO DAILY [facility] Atorvastatin Calcium (Lipitor -) 40 mg PO [facility] Last Admin: 10/02/16 22:15 Dose: 40 mg Donepezil HCl (Aricept -) 5 mg PO [facility] Last Admin: 10/02/16 22:15 Dose: 5 mg Enoxaparin Sodium (Lovenox -) 40 mg SQ DAILY [facility] Folic Acid (Folic Acid -) 1 mg PO DAILY [facility] Memantine (Namenda -) 10 mg PO BID [facility] Last Admin: 10/02/16 22:15 Dose: 10 mg Metoprolol Tartrate (Lopressor -) 12.5 mg PO BID [facility] Last Admin: 10/02/16 22:15 Dose: 12.5 mg Ramipril (Altace -) 2.5 mg PO DAILY [facility] - Objective Vital Signs: Vital Signs Temperature 98.8 F 10/02/16 18:00 Pulse Rate 65 10/02/16 18:00 Respiratory Rate 20 10/02/16 18:00 Blood Pressure 117/71 10/02/16 18:00 O2 Sat by Pulse Oximetry (%) 95 10/02/16 08:00 Constitutional: Yes: Well Nourished, No Distress, Calm Eyes: Yes: WNL HENT: Yes: WNL Neck: Yes: WNL Cardiovascular: Yes: Regular Rate and Rhythm, S1, S2 Respiratory: Yes: Regular, CTA Bilaterally Gastrointestinal: Yes: Normal Bowel Sounds, Soft Genitourinary: Yes: WNL Musculoskeletal: Yes: WNL Extremities: Yes: WNL Edema: No Peripheral Pulses WNL: Yes Integumentary: Yes: WNL Neurological: Yes: Alert, Oriented ...Motor Strength: WNL Psychiatric: Yes: Alert, Oriented Labs: CBC, BMP 10/02/16 05:05 10/02/16 05:05 INR, PTT INR 1.02 (0.82-1.09) 10/01/16 10:15 Problem List - Problems (1) Dementia Assessment/Plan: Has difficulty expressing, able to function by himself Code(s): F03.90 - UNSPECIFIED DEMENTIA WITHOUT BEHAVIORAL DISTURBANCE (2) HTN (hypertension) Code(s): I10 - ESSENTIAL (PRIMARY) HYPERTENSION Qualifiers: Hypertension type: essential hypertension Qualified Code(s): I10 - Essential (primary) hypertension (3) Hyperlipidemia Code(s): E78.5 - HYPERLIPIDEMIA, UNSPECIFIED Qualifiers: Hyperlipidemia type: unspecified Qualified Code(s): E78.5 - Hyperlipidemia, unspecified (4) Iliac artery aneurysm, bilateral Code(s): I72.3 - ANEURYSM OF ILIAC ARTERY (5) Syncope and collapse Assessment/Plan: Had two episodes of syncope first about ten minutes witnessed by and second on the day of admission which was not witnessed Code(s): R55 - SYNCOPE AND COLLAPSE (6) Abdominal aortic aneurysm (AAA) 3.0 cm to 5.5 cm in diameter in male Code(s): I71.4 - ABDOMINAL AORTIC ANEURYSM, WITHOUT RUPTURE (7) Inguinal hernia Assessment/Plan: Reducible moderate size Code(s): K40.90 - UNIL INGUINAL HERNIA, W/O OBST OR GANGR, NOT SPCF RECUR (8) Coronary artery disease Assessment/Plan: Underwent angioplasty with two stents. Recent cardiac cath shows extensive disease requiring bypass surgery Code(s): I25.10 - ATHSCL HEART DISEASE OF [place] CORONARY ARTERY W/O ANG PCTRS Assessment/Plan Exact etiology of repeated syncope not determined but because of extensive cardiac disease it's advisable to proceed with CABG. Patient and family explained at length and they agree to proceed. Case discussed with senior gamemaster.
[2016-10-03] MEDS: ASPIRIN 81 MG CHEWABLE TABLETS PO SCH (09:37)
[2016-10-03] MEDS: MEMANTINE HCL 10 MG TABLET (FP) PO SCH ×2 (09:37→22:39)
[2016-10-03] MEDS: FOLIC ACID 1 MG TABLET (FP) PO SCH (09:37)
[2016-10-03] MEDS: ENOXAPARIN NA (PORCINE) 40 MG/0.4 ML DISP.SYRIN SQ SCH (09:37)
[2016-10-03] MEDS: METOPROLOL TARTRATE 25 MG TABLET (FP) PO SCH ×2 (09:38→22:39)
[2016-10-03] MEDS: RAMIPRIL 2.5 MG CAPSULE (FP) PO SCH (09:38)
--- NOTE | 2016-10-03 11:27 | PN ---
Progress Note, Physician Chief Complaint: Pt sitting up; anxious; denies chest pain. Pt's and [id number] are at bedside. History of Present Illness: The patient is an 85 year old man (nani Chandler), accompanied by daughter and )r, with a significant past medical history of NSTEMI, triple vessel CAD, s/ p DEStent of LAD; 100% RCA occlusion; for staged LCx stent (refused CABG 2016), systolic and diastolic CHF, hypertension, LBBB, and dementia, on a daily baby aspirin and clopidogrel, who presents to the ED s/p witnessed fall earlier today. As per daughter, the patient got up to use the bathroom when she fell onto the right side of her body and on the right side of the back of her head. Patient reports right sided arm pain and right sided leg pain. Pt reportedly did not recover consciousness for several minutes; he reportedly had a similar episode last week. Denies head pain. Denies loss of consciousness. Denies focal numbness, weakness , or tingling. Denies chest pain or shortness of breath. Denies any other symptoms. - Current Medication List Current Medications: Active Medications Aspirin (Asa -) 81 mg PO DAILY [facility] Last Admin: 10/03/16 09:37 Dose: 81 mg Atorvastatin Calcium (Lipitor -) 40 mg PO HS [facility] Last Admin: 10/02/16 22:15 Dose: 40 mg Donepezil HCl (Aricept -) 5 mg PO HS [facility] Last Admin: 10/02/16 22:15 Dose: 5 mg Enoxaparin Sodium (Lovenox -) 40 mg SQ DAILY [facility] Last Admin: 10/03/16 09:37 Dose: 40 mg Folic Acid (Folic Acid -) 1 mg PO DAILY [facility] Last Admin: 10/03/16 09:37 Dose: 1 mg Memantine (Namenda -) 10 mg PO BID [facility] Last Admin: 10/03/16 09:37 Dose: 10 mg Metoprolol Tartrate (Lopressor -) 12.5 mg PO BID [facility] Last Admin: 10/03/16 09:38 Dose: 12.5 mg Ramipril (Altace -) 2.5 mg PO DAILY [facility] Last Admin: 10/03/16 09:38 Dose: 2.5 mg - Objective Vital Signs: Vital Signs Temperature 97.9 F 10/03/16 10:34 Pulse Rate 63 10/03/16 10:34 Respiratory Rate 20 10/03/16 10:34 Blood Pressure 138/78 10/03/16 10:34 O2 Sat by Pulse Oximetry (%) 97 10/03/16 09:00 Constitutional: Yes: Anxious, Thin Eyes: Yes: WNL HENT: Yes: WNL Neck: Yes: WNL Cardiovascular: Yes: Regular Rate and Rhythm, S2 (split) Respiratory: Yes: Regular Gastrointestinal: Yes: Soft ...Rectal Exam: Yes: Deferred Genitourinary: No: Anuria Breast(s): Yes: WNL Musculoskeletal: Yes: Muscle Weakness Extremities: Yes: Cool Edema: No Peripheral Pulses WNL: Yes Integumentary: Yes: WNL Neurological: Yes: Confusion Psychiatric: Yes: Other (dementia) Labs: CBC, BMP 10/02/16 05:05 10/02/16 05:05 INR, PTT INR 1.02 (0.82-1.09) 10/01/16 10:15 - ....Imaging Other: Other (telemetry: NSR; wide complex QRS (chronic LBBB); no significant arrhythmias or pauses) Problem List - Problems (1) Abdominal aneurysm Code(s): I71.4 - ABDOMINAL AORTIC ANEURYSM, WITHOUT RUPTURE (2) Chest pain Code(s): R07.9 - CHEST PAIN, UNSPECIFIED (3) HTN (hypertension) Code(s): I10 - ESSENTIAL (PRIMARY) HYPERTENSION Qualifiers: Hypertension type: essential hypertension Qualified Code(s): I10 - Essential (primary) hypertension (4) Iliac artery aneurysm, bilateral Code(s): I72.3 - ANEURYSM OF ILIAC ARTERY (5) Syncope Assessment/Plan: TNI < 0.02. EKG: NSR; LBBB; no acute changes. Follow on telemetry monitoring: no significant arrhythmias or pauses presently. No significant orthostatic vital sign abnormalities. TSH WNL. Carotid artery US: no significant plaque or stenoses. ECHO: normal LVEF; mild MR, TR. Maintain hydration (Cr increased from 1.0-->1.3). F/u recent cardiac workup (s/p LAD stent; planned for staged coronary artery stenting, as pt/family had refused CABG). Discussion with Dr. Bill, vascular surgeon: no urgent therapy required presently for pt's aortic aneurysms; pt may have coronary artery workup first. Addendum: Pt's case was discussed today with Dr. Guerrero, pt's coronary interventionalist. He went over Mr. Valentine's clinical hx and angiograms today with cardiothoracic surgeon. As pt has presently has patent LAD, has multiple comordities, including significant dementia, and is at high risk for perioperative complications from CABG, it was deemed preferable for him to be managed with optimal medications (continue metoprolol and ACEI, ASA) and f/u within the next two weeks by Dr. Guerrero for potential staged PCI of the NIRAJ. Code(s): R55 - SYNCOPE AND COLLAPSE Qualifiers: Syncope type: unspecified Qualified Code(s): R55 - Syncope and collapse (6) Hyperlipidemia Assessment/Plan: LDL 42; HDL>80; continue atorvastatin 40 mg daily. Code(s): E78.5 - HYPERLIPIDEMIA, UNSPECIFIED Qualifiers: Hyperlipidemia type: unspecified Qualified Code(s): E78.5 - Hyperlipidemia, unspecified (7) Dementia Code(s): F03.90 - UNSPECIFIED DEMENTIA WITHOUT BEHAVIORAL DISTURBANCE
--- NOTE | 2016-10-03 15:14 | PN ---
Progress Note, Physician History of Present Illness: Denies any chest pain, SOB , PND dizziness, weakness of arms or legs. Awaiting tranfer to [facility] for CABG - Current Medication List Current Medications: Active Medications Aspirin (Asa -) 81 mg PO DAILY [facility] Last Admin: 10/03/16 09:37 Dose: 81 mg Atorvastatin Calcium (Lipitor -) 40 mg PO HS [facility] Last Admin: 10/02/16 22:15 Dose: 40 mg Donepezil HCl (Aricept -) 5 mg PO HS [facility] Last Admin: 10/02/16 22:15 Dose: 5 mg Enoxaparin Sodium (Lovenox -) 40 mg SQ DAILY [facility] Last Admin: 10/03/16 09:37 Dose: 40 mg Folic Acid (Folic Acid -) 1 mg PO DAILY [facility] Last Admin: 10/03/16 09:37 Dose: 1 mg Memantine (Namenda -) 10 mg PO BID [facility] Last Admin: 10/03/16 09:37 Dose: 10 mg Metoprolol Tartrate (Lopressor -) 12.5 mg PO BID [facility] Last Admin: 10/03/16 09:38 Dose: 12.5 mg Ramipril (Altace -) 2.5 mg PO DAILY [facility] Last Admin: 10/03/16 09:38 Dose: 2.5 mg - Objective Vital Signs: Vital Signs Temperature 98.2 F 10/03/16 13:33 Pulse Rate 63 10/03/16 13:33 Respiratory Rate 20 10/03/16 13:33 Blood Pressure 123/75 10/03/16 13:33 O2 Sat by Pulse Oximetry (%) 97 10/03/16 09:00 Constitutional: Yes: Well Nourished, No Distress, Calm Eyes: Yes: WNL, Conjunctiva Clear, EOM Intact HENT: Yes: WNL Neck: Yes: Supple Cardiovascular: Yes: Regular Rate and Rhythm, S1, S2 Respiratory: Yes: Regular, CTA Bilaterally Gastrointestinal: Yes: Normal Bowel Sounds, Soft Genitourinary: Yes: WNL Breast(s): Yes: WNL Musculoskeletal: Yes: WNL Edema: No Peripheral Pulses WNL: Yes Integumentary: Yes: WNL Neurological: Yes: Alert, Oriented, Cran Nerves II-XII Intact ...Motor Strength: WNL Psychiatric: Yes: Alert, Oriented Labs: CBC, BMP 10/02/16 05:05 05/24/17 05:05 INR, PTT INR 1.02 (0.82-1.09) 10/01/16 10:15 Problem List - Problems (1) Dementia Code(s): F03.90 - UNSPECIFIED DEMENTIA WITHOUT BEHAVIORAL DISTURBANCE (2) HTN (hypertension) Code(s): I10 - ESSENTIAL (PRIMARY) HYPERTENSION Qualifiers: Hypertension type: essential hypertension Qualified Code(s): I10 - Essential (primary) hypertension (3) Hyperlipidemia Code(s): E78.5 - HYPERLIPIDEMIA, UNSPECIFIED Qualifiers: Hyperlipidemia type: unspecified Qualified Code(s): E78.5 - Hyperlipidemia, unspecified (4) Iliac artery aneurysm, bilateral Code(s): I72.3 - ANEURYSM OF ILIAC ARTERY (5) Syncope and collapse Assessment/Plan: No further episodes of any syncope or arrhythmia noted Code(s): R55 - SYNCOPE AND COLLAPSE (6) Abdominal aortic aneurysm (AAA) 3.0 cm to 5.5 cm in diameter in male Code(s): I71.4 - ABDOMINAL AORTIC ANEURYSM, WITHOUT RUPTURE (7) Inguinal hernia Assessment/Plan: Hernia is reducible Code(s): K40.90 - UNIL INGUINAL HERNIA, W/O OBST OR GANGR, NOT SPCF RECUR (8) Coronary artery disease Code(s): I25.10 - ATHSCL HEART DISEASE OF [place] CORONARY ARTERY W/O ANG PCTRS Assessment/Plan Continues asymptomatic at present and family and patient have agreed to undergo CABG as suggested by cardiology post cardiac cath performed by
[2016-10-03] MEDS: DONEPEZIL HCL 5 MG TABLET (FP) PO SCH (22:38)
[2016-10-03] MEDS: ATORVASTATIN CA 40 MG TABLET (FP) PO SCH (22:39)
[2016-10-04] MEDS: ENOXAPARIN NA (PORCINE) 40 MG/0.4 ML DISP.SYRIN SQ SCH (10:08)
[2016-10-04] MEDS: ASPIRIN 81 MG CHEWABLE TABLETS PO SCH (10:08)
[2016-10-04] MEDS: MEMANTINE HCL 10 MG TABLET (FP) PO SCH (10:09)
[2016-10-04] MEDS: METOPROLOL TARTRATE 25 MG TABLET (FP) PO SCH (10:09)
[2016-10-04] MEDS: RAMIPRIL 2.5 MG CAPSULE (FP) PO SCH (10:09)
[2016-10-04] MEDS: FOLIC ACID 1 MG TABLET (FP) PO SCH (10:09)
[2016-10-04 11:48] VITALS: BP 104/68; PULSE 74; TEMP 97.9
--- NOTE | 2016-10-04 12:58 | DS ---
Physical Examination Vital Signs: Vital Signs Temperature 97.9 F 10/04/16 09:00 Pulse Rate 74 10/04/16 09:00 Respiratory Rate 20 10/04/16 09:00 Blood Pressure 104/68 10/04/16 09:00 O2 Sat by Pulse Oximetry (%) 97 10/04/16 09:00 Findings/Remarks: Denies any chest pain, dizziness or SOB Constitutional: Yes: Well Nourished, No Distress, Calm Eyes: Yes: WNL, Conjunctiva Clear, EOM Intact HENT: Yes: WNL Neck: Yes: Supple Cardiovascular: Yes: Regular Rate and Rhythm, S1, S2 Respiratory: Yes: Regular, CTA Bilaterally Gastrointestinal: Yes: Normal Bowel Sounds, Soft Renal/: Yes: WNL Musculoskeletal: Yes: WNL Extremities: Yes: WNL Edema: No Peripheral Pulses WNL: Yes Integumentary: Yes: WNL Neurological: Yes: Alert, Oriented ...Motor Strength: WNL Psychiatric: Yes: Alert, Oriented Labs: CBC, BMP 10/02/16 05:05 10/02/16 05:05 Discharge Summary Reason For Visit: SYNCOPE Current Active Problems Abdominal aneurysm (Acute) Abdominal aortic aneurysm (AAA) 3.0 cm to 5.5 cm in diameter in male (Acute) Cardiac arrhythmia (Acute) Chest pain (Acute) Coronary artery disease (Acute) Dementia (Acute) HTN (hypertension) (Acute) Hyperlipidemia (Acute) Iliac artery aneurysm, bilateral (Acute) Inguinal hernia (Acute) Myocardial infarct (Acute) NSTEMI (non-ST elevated myocardial infarction) (Acute) Syncope (Acute) Syncope and collapse (Acute) Procedures: Principal: CT scan brain Hospital Course: 80 y/o with severe CAD was admitteed with h/o syncope around 4AM which was not witnessed, Also had another episode of syncope a week earlier and was unresponsive for 10mts as per his . His CT of brain was negative, EKG did not show any changes, carotid duplex showed minimal disease, lipids were well controlled with lipitor. A CT scan of abdomen showed AAA which on US measured 3.8cm and he was seen by , vascular surgeon. He also had aneurysms of both iliac arteries. He was first monitored in the ICU and then transferred to Telemetry and remained asymptomatic. A decision was made by the federal java developer and the thoracic surgeon to proceed first with stent of circumflex and to tackle wothers at a later date.He has been advised not to drive. Condition: Stable - Instructions Referrals: Rocky Tucker MD [Primary Care Provider] - - Home Medications Comprehensive Discharge Medication List: Ambulatory Orders Aspirin [ASA -] 81 mg PO DAILY 10/01/16 Atorvastatin Ca [Lipitor] 40 mg PO HS 10/01/16 Donepezil HCl 5 mg PO HS 10/01/16 Folic Acid 1 mg PO DAILY 10/01/16 Memantine HCl 10 mg PO BID 10/01/16 Metoprolol Tartrate 12.5 mg PO BID 10/01/16 Ramipril 2.5 mg PO DAILY 10/01/16
--- NOTE | 2016-10-04 14:52 | PN ---
Progress Note, Physician Chief Complaint: Pt sitting in chair; denies pain or feeling short of breath. History of Present Illness: The patient is an 85 year old man (nani Chandler), accompanied by daughter and )r, with a significant past medical history of NSTEMI, triple vessel CAD, s/ p DEStent of LAD; 100% RCA occlusion; for staged LCx stent (refused CABG 2016), systolic and diastolic CHF, hypertension, LBBB, and dementia, on a daily baby aspirin and clopidogrel, who presents to the ED s/p witnessed fall earlier today. As per daughter, the patient got up to use the bathroom when she fell onto the right side of her body and on the right side of the back of her head. Patient reports right sided arm pain and right sided leg pain. Pt reportedly did not recover consciousness for several minutes; he reportedly had a similar episode last week. Denies head pain. Denies loss of consciousness. Denies focal numbness, weakness , or tingling. Denies chest pain or shortness of breath. Denies any other symptoms. - Current Medication List Current Medications: Active Medications Aspirin (Asa -) 81 mg PO DAILY [facility] Last Admin: 10/04/16 10:08 Dose: 81 mg Atorvastatin Calcium (Lipitor -) 40 mg PO HS [facility] Last Admin: 10/03/16 22:39 Dose: 40 mg Donepezil HCl (Aricept -) 5 mg PO HS [facility] Last Admin: 10/03/16 22:38 Dose: 5 mg Enoxaparin Sodium (Lovenox -) 40 mg SQ DAILY [facility] Last Admin: 10/04/16 10:08 Dose: 40 mg Folic Acid (Folic Acid -) 1 mg PO DAILY [facility] Last Admin: 10/04/16 10:09 Dose: 1 mg Memantine (Namenda -) 10 mg PO BID [facility] Last Admin: 10/04/16 10:09 Dose: 10 mg Metoprolol Tartrate (Lopressor -) 12.5 mg PO BID [facility] Last Admin: 10/04/16 10:09 Dose: 12.5 mg Ramipril (Altace -) 2.5 mg PO DAILY [facility] Last Admin: 10/04/16 10:09 Dose: 2.5 mg - Objective Vital Signs: Vital Signs Temperature 97.9 F 10/04/16 09:00 Pulse Rate 74 10/04/16 09:00 Respiratory Rate 20 10/04/16 09:00 Blood Pressure 104/68 10/04/16 09:00 O2 Sat by Pulse Oximetry (%) 97 10/04/16 09:00 Constitutional: Yes: No Distress Eyes: Yes: WNL HENT: Yes: WNL Neck: Yes: WNL Cardiovascular: Yes: Regular Rate and Rhythm Respiratory: Yes: WNL Gastrointestinal: Yes: Soft ...Rectal Exam: Yes: Deferred Genitourinary: No: Anuria Breast(s): Yes: WNL Musculoskeletal: Yes: WNL Extremities: Yes: WNL Edema: No Peripheral Pulses WNL: Yes Integumentary: Yes: WNL Neurological: Yes: WNL Psychiatric: Yes: Other (dementia) Labs: CBC, BMP 10/02/16 05:05 10/02/16 05:05 INR, PTT INR 1.02 (0.82-1.09) 10/01/16 10:15 - ....Imaging Other: Image Reviewed (telemetry: NSR; no arrhythmias or pauses.) Problem List - Problems (1) Abdominal aneurysm Assessment/Plan: see under "syncope". Code(s): I71.4 - ABDOMINAL AORTIC ANEURYSM, WITHOUT RUPTURE (2) Chest pain Code(s): R07.9 - CHEST PAIN, UNSPECIFIED (3) HTN (hypertension) Code(s): I10 - ESSENTIAL (PRIMARY) HYPERTENSION Qualifiers: Hypertension type: essential hypertension Qualified Code(s): I10 - Essential (primary) hypertension (4) Iliac artery aneurysm, bilateral Code(s): I72.3 - ANEURYSM OF ILIAC ARTERY (5) Syncope Assessment/Plan: TNI < 0.02. EKG: NSR; LBBB; no acute changes. Follow on telemetry monitoring: no significant arrhythmias or pauses. No significant orthostatic vital sign abnormalities. TSH WNL. Carotid artery US: no significant plaque or stenoses. ECHO: normal LVEF; mild MR, TR. Maintain hydration (Cr increased from 1.0-->1.3). F/u recent cardiac workup (s/p LAD stent; planned for staged coronary artery stenting, as pt/family had refused CABG). Discussion with Dr. Bill, vascular surgeon: no urgent therapy required presently for pt's aortic aneurysms; pt may have coronary artery workup first. Pt's case was discussed yesterday with Dr. Guerrero, pt's coronary interventionalist. He went over Mr. Valentine's clinical hx and angiograms today with cardiothoracic surgeon. As pt has presently has patent LAD, has multiple comorbidities, including significant dementia, and is at high risk for perioperative complications from CABG, it was deemed preferable for him to be managed with optimal medications (continue metoprolol and ACEI, ASA) and f/u within the next two weeks by Dr. Guerrero for potential staged PCI of the NIRAJ. Mr. Valentine's case was discussed today with Dr. Tucker. Code(s): R55 - SYNCOPE AND COLLAPSE Qualifiers: Syncope type: unspecified Qualified Code(s): R55 - Syncope and collapse (6) Hyperlipidemia Assessment/Plan: LDL 42; HDL>80; continue atorvastatin 40 mg daily. Code(s): E78.5 - HYPERLIPIDEMIA, UNSPECIFIED Qualifiers: Hyperlipidemia type: unspecified Qualified Code(s): E78.5 - Hyperlipidemia, unspecified (7) Dementia Assessment/Plan: On Namenda. Code(s): F03.90 - UNSPECIFIED DEMENTIA WITHOUT BEHAVIORAL DISTURBANCE (8) Coronary artery disease Assessment/Plan: triple vessel CAD; s/p LAD stent earlier this year; for staged procedures. Would continue ASA, and restart clopidogrel 75 mg daily, unless pt at significant risk for bleeding. Code(s): I25.10 - ATHSCL HEART DISEASE OF [place] CORONARY ARTERY W/O ANG PCTRS
== END 2016-10-04 16:23 | disposition home or self-care (01) | DRG 303 ==
LOC: JER 09:27 → JERBED 15:57 → JICU 19:47 → J4W 10-02 12:06
PROVIDERS: ADMIT Internal Medicine Hematology & Oncology; ATTEND Internal Medicine Hematology & Oncology
DX: I25.10 Atherosclerotic heart disease of native coronary artery without angina pectoris (principal); I50.32 Chronic diastolic (congestive) heart failure; R55 Syncope and collapse; E78.5 Hyperlipidemia, unspecified; R07.9 Chest pain, unspecified; I44.7 Left bundle-branch block, unspecified; I11.0 Hypertensive heart disease with heart failure; I71.4 Abdominal aortic aneurysm, without rupture; I72.3 Aneurysm of iliac artery; F03.90 Unspecified dementia, unspecified severity, without behavioral disturbance, psychotic disturbance, mood disturbance, and anxiety; I25.2 Old myocardial infarction; K40.90 Unilateral inguinal hernia, without obstruction or gangrene, not specified as recurrent; Z80.3 Family history of malignant neoplasm of breast
CPT/HCPCS: 36415; 70450-TC; 71010-TC; 74176-TC; 76775-TC; 80053; 80061; 82550; 83036; 83721; 83735; 84100; 84443; 84484; 85025; 85610; 93005; 93010; 93306-TC; 93880-TC; 99285-25

== ENCOUNTER 2016-11-13 07:31 | Day surgery (SDC) | payer OTHER ==
[2016-11-11 09:56] VITALS: BMI 25.8
[~2016-11-13 07:31] MED LIST: BUPIVACAINE HCL/PF 0.5% (5MG/ML) 10 ML VIAL IJ ONE
[2016-11-13] MEDS ORDERED: MIDAZOLAM HCL 2 MG/2 ML SINGLE DOSE VIAL ONE (10:16)
[2016-11-13] MEDS ORDERED: ceFAZolin SODIUM 1 GM VIAL IVPB ONE (10:28)
[2016-11-13] MEDS ORDERED: BUPIVACAINE HCL/PF 0.5% (5MG/ML) 10 ML VIAL IJ ONE (11:11)
[2016-11-13] MEDS ORDERED: ceFAZolin SODIUM 1 GM VIAL ONE (11:26)
[2016-11-13] MEDS ORDERED: PROMETHAZINE HCL 25 MG/1 ML VIAL IVPUSH PRN (11:34)
[2016-11-13] MEDS ORDERED: oxyCODONE HCL 5 MG TABLET PO PRN (11:34)
[2016-11-13] MEDS ORDERED: ONDANSETRON 4 MG/2 ML VIAL IVPUSH PRN (11:34)
--- NOTE | 2016-11-13 11:47 | OP ---
Operative Note - Note: Operative Date: 11/13/16 Pre-Operative Diagnosis: recurrent left inguinal hernia Operation: open repair of recurrent left inguinal hernia with mesh Post-Operative Diagnosis: Same as Pre-op Surgeon: Cirilo Bañuelos Morphologist: Carley Salamanca Anesthesiologist/HOOP EXPANDER: Lavelle Goodwin Anesthesia: Spinal Estimated Blood Loss (mls): 15 Fluid Volume Replaced (mls): 1,000 Operative Report Dictated: Yes
--- NOTE | 2016-11-13 11:48 | OP ---
Operative Note - Note: Operative Date: 11/13/16 Pre-Operative Diagnosis: left inguinal hernia recurrent Operation: open repair of left recurrent inguinal hernia with mesh Findings: left direct and femoral hernia incarcerated Post-Operative Diagnosis: Same as Pre-op Surgeon: Cirilo Bañuelos Cytopathology Technologist: Carley Salamanca Anesthesia: Spinal Estimated Blood Loss (mls): 20
--- NOTE | 2016-11-13 11:48 | SURG ---
Surgery Senior Mechanical Estimator Note Senior Mechanical Estimator: Carley Salamanca PA-C Date of Service: 11/13/16 Diagnosis: recurrent left inguinal hernia Procedure: open repair of recurrent left inguinal hernia with mesh I was present for the entirety of the operative procedure. For further detail, please refer to operative report. Visit type - Case Type Case Type: Scheduled Admission
--- NOTE | 2016-11-13 12:38 | OP ---
DATE OF OPERATION: 11/13/2016 PREOPERATIVE DIAGNOSIS: Left recurrent inguinal hernia. POSTOPERATIVE DIAGNOSIS: Left direct recurrent inguinal hernia. PROCEDURES: Open repair of recurrent left inguinal hernia with mesh. SURGEON: Cirilo Bañuelos MD FLIGHT MANAGER: Yoli Bass. ANESTHESIA: Spinal. COMPLICATIONS: None. The patient tolerated the procedure well. ESTIMATED BLOOD LOSS: Approximately 20 mL. INDICATIONS: This is an 80-year-old male with a history of previous left inguinal hernia repair in the past who presents with a recurrence which has been increasingly painful over the last several months. The patient has a significant history of coronary artery disease and was scheduled to undergo percutaneously revascularization with stenting, however, it was postponed due to the persistent and worsening groin pain. Consultation per the primary care physician's office with a elevator erector helper recommended proceed with caution with the hernia repair otherwise would have to wait at least a year after coronary revascularization given the need for uninterrupted use of Plavix and aspirin. The patient was advised of the risks and complications and the potential problems. He agreed to proceed with anesthesia consultation with spinal and local as an option as a result of reduction with cardiovascular risks. PROCEDURE IN DETAIL: After obtaining informed consent, the patient was taken to the operating room. After administration of spinal anesthesia was accomplished without complications, the patient was then prepped and draped in the usual sterile fashion. IV antibiotics were administered. After a standard timeout was observed and all team members were in agreement, the operation was begun with an incision along the midline 2 cm above the pubic symphysis and was carried through with a scalpel. The anterior fascia was incised and opened and the rectus sheath was then retracted laterally. The preperitoneal space was then mobilized with blunt finger dissection and the use of Kittner. Small branches were divided using cautery and the anterior epigastric vessels were identified and appropriately retracted. The vas deferens and testicular vessel were also identified and appropriate protected. The retractor was mobilized to the intraperitoneal space as well as the peritoneal sac retracted. The cord structures were explored and there was no evidence of indirect hernia sac. A direct incarcerated recurrence and defect were clearly visualized. These were completely reduced and the Royer ligament was then clearly exposed. Then a ProGrip mesh was brought in and positioned to cover both the right spaces. With mesh appropriately in position the wound was irrigated and suction. Final check for bleeders was performed and controlled with cautery. Then, the midline incision was closed using 0 PDS suture in interrupted fashion in a [id number] fashion. With the final closure then the subcutaneous tissues were reapproximated with 3-0 Vicryl. Skin was closed with 4-0 Monocryl. Dermabond was applied and the patient was returned to the recovery room awake and alert in stable condition. The patient tolerated the procedure well. Alisson [id number]
[2016-11-13] MEDS ORDERED: oxyCODONE HCL 5 MG TABLET ONE ×2 (16:02→16:04)
[2016-11-13] MEDS ORDERED: KETOROLAC TROMETHAMINE 30 MG/1 ML VIAL IVPUSH ONE (16:45)
[2016-11-13] MEDS ORDERED: KETOROLAC TROMETHAMINE 30 MG/1 ML VIAL ONE (16:46)
[2016-11-13] MEDS ORDERED: ATORVASTATIN CA 40 MG TABLET (FP) PO SCH (22:00)
[2016-11-13] MEDS ORDERED: METOPROLOL SUCCINATE 25 MG TAB.SR.24H (FP) ONE (23:20)
[2016-11-13] MEDS: METOPROLOL SUCCINATE 25 MG TAB.SR.24H (FP) PO SCH (23:22)
[2016-11-13] MEDS: MEMANTINE HCL 10 MG TABLET (FP) PO SCH (23:22)
[2016-11-13] MEDS: TAMSULOSIN HCL 0.4 MG CAP.ER.24H (FP) PO SCH (23:22)
[2016-11-14] MEDS ORDERED: oxyCODONE HCL 5 MG TABLET PO PRN
[2016-11-14 06:16] VITALS: TEMP 98.7
[2016-11-14] MEDS ORDERED: LEVOTHYROXINE NA 25 MCG TABLET (FP) PO SCH (07:00)
--- NOTE | 2016-11-14 08:26 | PN ---
Progress Note, Physician History of Present Illness: s/p left recurrent inguinal hernia repair with mesh admitted overnight for urinary retention feeling well and voiding without difficulty - Current Medication List Current Medications: Active Medications Aspirin (Ecotrin -) 81 mg PO DAILY [facility] Atorvastatin Calcium (Lipitor -) 40 mg PO HS [facility] Last Admin: 11/13/16 23:22 Dose: 40 mg Fentanyl (Sublimaze Injection -) 50 mcg IVPUSH [id number] PRN PRN Reason: PAIN Stop: 11/16/16 11:35 Levothyroxine Sodium (Synthroid -) 25 mcg PO DAILY@0700 [facility] Last Admin: 11/14/16 06:02 Dose: 25 mcg Memantine (Namenda -) 10 mg PO BID [facility] Last Admin: 11/13/16 23:22 Dose: 10 mg Metoprolol Succinate (Toprol Xl -) 12.5 mg PO BID [facility] Last Admin: 11/13/16 23:22 Dose: 12.5 mg Oxycodone HCl (Roxicodone -) 5 mg PO Q4H PRN PRN Reason: MILD PAIN Stop: 11/14/16 23:59 Oxycodone HCl (Roxicodone -) 5 mg PO Q4H PRN PRN Reason: PAIN Ramipril (Altace -) 2.5 mg PO DAILY [facility] Tamsulosin HCl (Flomax -) 0.4 mg PO DAILY@0830 [facility] Last Admin: 11/13/16 23:22 Dose: 0.4 mg - Objective Vital Signs: Vital Signs Temperature 98.7 F 11/14/16 06:11 Pulse Rate 64 11/14/16 06:11 Respiratory Rate 20 11/14/16 06:11 Blood Pressure 110/67 11/14/16 06:11 O2 Sat by Pulse Oximetry (%) 96 11/13/16 21:00 Gastrointestinal: Yes: Other (small seroma, incision clean and dry)
[2016-11-14] MEDS: TAMSULOSIN HCL 0.4 MG CAP.ER.24H (FP) PO SCH (08:49)
[2016-11-14 09:06] VITALS: BP 98/57; PULSE 65
[2016-11-14] MEDS: MEMANTINE HCL 10 MG TABLET (FP) PO SCH (09:11)
[2016-11-14] MEDS: METOPROLOL SUCCINATE 25 MG TAB.SR.24H (FP) PO SCH (09:12)
[2016-11-14] MEDS ORDERED: ASPIRIN COATED 81 MG TABLET.EC PO SCH (10:00)
[2016-11-14] MEDS ORDERED: RAMIPRIL 2.5 MG CAPSULE (FP) PO SCH (10:00)
== END 2016-11-14 09:36 | disposition home or self-care (01) ==
LOC: JASU-SURG 07:31 → J6S 20:42 → JASU-SURG 11-14 09:36
PROVIDERS: ATTEND Surgery
PROC: 0YU60JZ Supplement Left Inguinal Region with Synthetic Substitute, Open Approach (ICD-10-PCS; principal; 2016-11-13 09:00)
DX: K40.91 Unilateral inguinal hernia, without obstruction or gangrene, recurrent (principal)
CPT/HCPCS: 94760